=== PATIENT | female | born 1955 | race Caucasian/White ===

== ENCOUNTER 2020-02-03 11:27 | Outpatient (CLI) | payer BC, SELFPAY ==
--- NOTE | ~2020-02-03 | MMUS_ITS ---
EXAMINATION: MM screen LT diag RT w monalisa, US breast RT limited HISTORY: Right breast lump. Left breast screening. TECHNIQUE: Additional 3-D tomosynthesis images of were performed and synthetic 2-D images were genera helen. CAD analysis was submitted and interpreted. High resolution breast ultrasound was performed. COMPARISON: None BREAST PARENCHYMAL COMPOSITION: There are scattered areas of fibroglandular density. FINDINGS: MAMMOGRAPHIC FINDINGS: There is an at least 2 cm irregular hypodensity mass with associated architectural distortion and ret raction in the upper mid right breast centered medial to midline, highly suggestive of malignancy. Th ere is suggestion of right nipple retraction There is an approximately 12 mm probable oil cyst in the posterior outer right breast (craniocaudal T omosynthesis image 44/77). No other suspicious mass or architectural distortion, skin thickening or retraction or any malignant calcification of the breasts is evident. ULTRASOUND: 9:00 4 cm from nipple: 1.3 x 1.8 x 2.8 mm indeterminate hypoechoic lesion without internal vascularit y or shadowing 9:00 1 cm from nipple: 2.9 x 3.8 x 3.7 mm indeterminate hypoechoic lesion without internal vascularit y or posterior shadowing 9:00 1 cm from nipple: 3.3 x 2.2 x 3.0 mm indeterminate hypoechoic lesion without internal vascularit y or posterior shadowing 10:00 8 cm from nipple: There is a very with irregular incompletely circumscribed approximately 8.5 x 1.6 cm hypoechoic mass with some internal vascularity, suspicious for malignancy. 1:00 2 cm from nipple: There is an approximately 2.1 cm irregular mass with shaggy margins, with radi ating spicules. This mass measures up to 2.2 x 3 cm dimension, with internal vascularity, highly sugg estive of malignancy. There is linear contiguous extension of this soft tissue mass extending toward the nipple, with 8 x 10 mm irregular mass in the subareolar area.. IMPRESSION: 1. Malignant masses are suggested at 1:00 2 cm from the nipple, extending to the nipple, and at 10:00 8 cm from the nipple 2. Consider ultrasound-guided biopsy of the masses at 1:00 and 10:00 3. Breast surgeon consultation and breast MRI examination may be of benefit considering the extent of disease, for treatment planning purposes BI-RADS Category 5: Highly suggestive of malignancy. Appropriate action should be taken. Dr. Goldberg telephoned the report and biopsy recommendation to Nurse Villegas on 02/03/2020 at 1315 hours. Reviewed, dictated and finalized at location A. IMPRESSION: 1. Malignant masses are suggested at 1:00 2 cm from the nipple, extending to th e nipple, and at 10:00 8 cm from the nipple 2. Consider ultrasound-guided biopsy of the masses at 1:00 and 10:00 3. Breast surgeon consultation and breast MRI examination may be of benefit con sidering the extent of disease, for treatment planning purposes BI-RADS Category 5: Highly suggestive of malignancy. Appropriate action should be taken. Dr. Goldberg telephoned the report and biopsy recommendation to Nurse Villegas on 02/02 at 1315 hours.
== END 2020-02-03 11:28 | disposition home or self-care (01) ==
LOC: ANHIMG 11:32
PROVIDERS: PCP Family Medicine; Visit Provider Family Medicine
DX: Z12.31 Encounter for screening mammogram for malignant neoplasm of breast (principal); N63.10 Unspecified lump in the right breast, unspecified quadrant; R92.8 Other abnormal and inconclusive findings on diagnostic imaging of breast
CPT/HCPCS: 76642; 77063; 77065; 77067

== ENCOUNTER 2020-03-08 13:50 | Outpatient (CLI) | payer BC, SELFPAY ==
[2020-03-08 14:21] LABS: INR 0.9; Prothrombin Time 11.9 Seconds (11.1-14.7)
[2020-03-08 14:22] LABS: Partial Thromboplastin Time 23.9 SECONDS (22.3-36.8)
== END 2020-03-08 13:51 | disposition home or self-care (01) ==
PROVIDERS: PCP Family Medicine; Visit Provider Surgery
DX: N63.10 Unspecified lump in the right breast, unspecified quadrant (principal)
CPT/HCPCS: 36415; 85610; 85730

== ENCOUNTER 2020-03-12 00:22 | Day surgery (SDC) | payer BC, SELFPAY ==
[2020-03-07 15:34] VITALS: BMI 21.2
--- NOTE | ~2020-03-12 | XR_ITS ---
XR chest port-a-cath/central 03/12/2020 13:47 Indication: Postop insertion of portacatheter Procedure: AP portable chest Comparison: No prior studies for comparison. Findings: Portacatheter tip in the SVC. Bibasilar atelectasis. No pleural effusion, edema or pneumoth orax. No acute osseous abnormality. Heart size is normal. Impression: 1: Bibasilar atelectasis. Reviewed, dictated and finalized at location A. Impression: 1: Bibasilar atelectasis.
--- NOTE | ~2020-03-12 | XR_ITS ---
EXAMINATION: XR fl guide central line place DATE: 03/12/2020 13:17 INDICATION: Port catheter insertion TECHNIQUE: 2 fluoroscopic spot images of the upper chest were obtained during procedure performed by Dr. Robbins. Radiologist was not present for the imaging or procedure. The amount of fluoroscopy time used during this procedure was 0.7 minutes. COMPARISON: None. FINDINGS/IMPRESSION: Left internal jugular central venous port catheter with distal tip near the superior cavoatrial junct ion. See procedure note for further detail. Reviewed, dictated and finalized at location A.
[2020-03-12 11:47] VITALS: BP 158/87; PULSE 75; RESP 16; TEMP 36.7; O2SAT 99
[2020-03-12] MEDS: LACTATED RINGERS 1,000 ML 30 ML IV CONT (11:50)
--- NOTE | 2020-03-12 12:11 | P.PNAN_ITS ---
Anes - Initial Pre Proc Eval Procedure: Operation Date: 03/12/20 13:00 Proposed Procedures p Insertion Yanira Cath - Leonard Robbins DO Date/Time: 03/12/20 12:11 Surgeon: Leonard Robbins DO Pre Op Diagnosis: Right Breast Ca Patient Data Age: 64 Gender: F Height: 5 ft 4 in Weight: 56.25 kg Last Vital Signs Temp 36.7 C 03/12/20 11:47 Pulse 75 03/12/20 11:47 Resp 16 03/12/20 11:47 BP 158/87 H 03/12/20 11:47 Pulse Ox 99 03/12/20 11:47 Allergies Allergy/AdvReac Type Severity Reaction Status Date / Time No Known Allergies Allergy Verified 03/12/20 11:37 Home Medications Medication Instructions Recorded Confirmed Type multivitamin 1 tablet PO DAILY 02/20/20 03/12/20 History Laboratory Tests 03/12/20 11:53 PT Pending INR Pending APTT Pending Patient hx anesthesia problems: none Family hx anesthesia problems: none [facility] Surgical History Surgical History History of appendectomy History of dilation and curettage 11/09/01 History of tubal ligation Social History Social History Smoking status: Former smoker Alcohol intake: current Gender identity (if verbalized by the patient): Female Anes - Eval Final PreProcedure Day of Procedure 03/12/20 12:11 Patient weight: normal Heart: regular rate and rhythm Lungs: clear to auscultation Airway: Mallampati scale class II Neurological: alert and oriented Last oral intake: >/= 8 hours ASA classification: III Emergent: no Anesthesia type and monitoring: general GIVS and standard monitoring Informed Consent: The patient's anesthetic plan and its attendant risks and benefits were discussed with the patient/family/POA. Questions were solicited and answers provided to the satisfaction of the patient/family/POA.
[2020-03-12 12:17] LABS: INR 0.9; Prothrombin Time 11.5 Seconds (11.1-14.7)
[2020-03-12 12:18] LABS: Partial Thromboplastin Time 25.3 SECONDS (22.3-36.8)
--- NOTE | 2020-03-12 12:20 | PM.IMHP ---
H&P: HPI History of Present Illness Chief complaint: Right Breast Ca Narrative: Wen Jung is a 64 year old female with a recent diagnosis of right breast cancer. She has a large mass in her right breast and biopsies confirmed ductal carcinoma. Pathology showed ER/FL negative and her 2 positive. She has been referred to Oncology for preoperative evaluation, and neoadjuvant chemotherapy has been recommended. She is in need of a port placement to begin chemo. [facility] Surgical History Surgical History History of appendectomy History of dilation and curettage 11/09/01 History of tubal ligation Family History Family History Father Carcinoma of common bile duct Alcoholism Sibling Alcoholism Depressive disorder Grandparent Breast cancer Social History Social History Smoking status: Former smoker Alcohol intake: current Gender identity (if verbalized by the patient): Female Meds Home Medications and Allergies Home Medications Medication Instructions Recorded Confirmed Type multivitamin 1 tablet PO DAILY 02/20/20 03/12/20 History Allergies Allergy/AdvReac Type Severity Reaction Status Date / Time No Known Allergies Allergy Verified 03/12/20 11:37 Vital Signs Vital Signs - 24 hr 03/12/20 11:47 Temperature 36.7 C Pulse Rate 75 Respiratory Rate 16 Blood Pressure 158/87 H Pulse Oximetry 99 Exam Const: General: alert; No acute distress Orientation/consciousness: patient oriented x3 Limitations: no limitations HENMT: Head: normocephalic and atraumatic Ears: hearing grossly normal bilaterally General nose exam: Normal external nose present and Normal nares present Mouth: Yes Normal oral and palatal mucosa present and Yes moist mucous membranes Eyes: General: appearance normal, both eyes and all related structures Conjunctivae: conjunctivae normal Sclera: sclerae normal Pupils: Equal, round and reactive pupils present EOM: EOMs intact bilaterally Neck: Neck: normal visual inspection, full ROM, no lymphadenopathy, supple and no JVD Lymphatic: no lymphadenopathy noted Chest: Chest palpation & inspection: normal inspection of the chest Resp: Effort & Inspection: normal respiratory effort and able to speak in complete sentences Auscultation: clear to auscultation bilaterally Percussion: percussion normal Cardio: Jugular venous distension: no JVD Rate: regular rate Rhythm: regular rhythm Heart sounds: S1 normal heart sound present and S2 normal heart sound present Peripheral pulses: Peripheral pulses 2+ throughout GI: Inspection: normal to inspection GI Palp: No abdominal tenderness, Yes Soft to palpation, No Guarding due to palpation present (GI), No Hernia present and No Rebound tenderness present Percussion: Yes normal to percussion Auscultation: normal bowel sounds : General: Yes no CVA tenderness Back/Spine/Pelvis: Back: no CVA tenderness Skin: General skin exam: normal color and dry skin Neuro: General: patient oriented x3, gait normal, moves all extremities, no focal motor deficits and CN's II-XI intact bilaterally Cranial nerves: Yes Equal, round and reactive pupils present Speech: normal speech Extrem: General: normal to inspection and capillary refill normal Assessment and Plan Assessment and plan (1) Breast cancer, right: Qualifiers: Breast location: upper outer quadrant of breast Estrogen receptor status: negative Patient sex: female Qualified Code(s): C50.411 - Malignant neoplasm of upper-outer quadrant of right female breast; Z17.1 - Estrogen receptor negative status [ER-] Code(s): C50.911 - Malignant neoplasm of unspecified site of right female breast Status: Acute Assessment and Plan: I have recommended insertion of Port-A-Cath. I have discussed the
[2020-03-12] MEDS: ceFAZolin 2 GM/D5W 50 ML 2 GM/50 ML BAG IVPB (12:36)
[2020-03-12] MEDS: IBUPROFEN IV 800 MG/200 ML 800 MG/200 ML BAG 400 MG IVPB (12:50)
[2020-03-12] MEDS: LIDO 1%/EPINEPHRINE 1:100,000 20 ML VIAL 10 ML INFILTRATE (12:57)
[2020-03-12] MEDS: HEPARIN SODIUM, PORCINE 10,000 UNITS/10 ML VIAL 3 UNITS IV PUSH (12:58)
[2020-03-12] MEDS: HEPARIN SODIUM 5,000 UNITS/ML VIAL 5000 UNITS IRRIGATION (13:01)
--- NOTE | 2020-03-12 13:13 | SUR.OPER ---
EBL 5
--- NOTE | 2020-03-12 13:24 | PM.PROC ---
Procedure Note - Detailed Date of procedure: 03/12/20 Pre-op diagnosis: Right Breast Ca Post-op diagnosis: same Procedure performed: Left internal jugular Port-A-Cath placement using ultrasound and fluoroscopic guidance Description of procedure: Procedure as well as risks, benefits, and alternatives were discussed with patient. Written consent was obtained and placed in chart prior to procedure. Patient was brought back to surgical suite. Was placed supine on operating table. Time-out was done confirm patient procedure. IV sedation was then administered by the Anesthesia Department. The chest and neck area was prepped and draped in sterile fashion using chlorhexidine prep. Patient was placed in Trendelenburg position. SonoSite ultrasound was used to identify the left internal jugular vein. It was visualized as a compressible vessel just lateral to the carotid artery. 1% lidocaine with epinephrine was infiltrated directly over the vessel under ultrasound guidance. An 18 gauge introducer needle was then advanced under ultrasound guidance directly into the left internal jugular vein. Dark nonpulsatile blood was aspirated. A 0.035 in guidewire was then advanced through the needle under fluoroscopic guidance. The guidewire was visualized advancing all the way down into the superior vena cava. 1% lidocaine with epinephrine was then infiltrated on the left anterior chest and along the tract up to the guidewire insertion site. A 3 cm incision was made with a 15 blade scalpel, and electrocautery was then used for dissection down through the subcutaneous tissue to the pectoral fascia. A pocket was created just inferior to the incision using blunt dissection. A small brigid incision was then also made at the insertion site at the neck. The tunneler was then advanced from the chest incision up to the neck incision and the catheter tubing was brought up through this tract. The dilator and sheath were then advanced over the guidewire under fluoroscopic visualization. The dilator and guidewire were then removed leaving the sheath in place. The catheter tubing was then advanced through the sheath under fluoroscopic guidance. The sheath was unsnapped and carefully peeled away. The catheter tubing was released underneath the neck incision. Fluoroscopy was used to confirm proper placement of the catheter tubing and no kinks along its path. The catheter was then cut to proper length and secured to the port. The port was then accessed with a Tavarez needle and aspirated and flushed with heparinized saline. The port function with ease. The port was then hep-locked with Hep-Lock solution. The port was then placed within the pocket that was created, and was secured to the fascia using 3 0 Prolene simple interrupted sutures. The patient was flattened out in bed. Darren's fascia was reapproximated using 3 0 Vicryl simple interrupted sutures. The skin of the incisions was then approximated using 4-0 Monocryl subcuticular suture. Exofin glue was then applied on top. The patient was then awakened from anesthesia and transferred to recovery. Implants: 8 Fr Bard PowerPort Anesthesia: MAC and local (1% lidocaine with epinephrine) Surgeon: Leonard Robbins DO Estimated blood loss (mL): 5 Complications: No immediate complications Condition: stable Disposition: same day Findings: This is a 64-year-old woman with the recent diagnosis of right breast cancer. She was found to have a ER/AK negative, HER2 Royal positive breast cancer. She has been referred to Oncology for evaluation, and neoadjuvant chemotherapy was recommended. She is in need of port placement to initiate chemo. Ultrasound guidance was used to identify the left internal jugular vein. This was identified as a compressible vessel just lateral to the carotid artery. An 18 gauge introducer needle was advanced under ultrasound guidance directly into the lumen of the left internal jugular vein. Fluoroscopy was then us
[2020-03-12 13:28] VITALS: BP 145/85; PULSE 81; RESP 16
[2020-03-12 13:58] VITALS: BP 136/86; PULSE 78; RESP 16
[2020-03-12 14:28] VITALS: BP 135/75; PULSE 81; RESP 16
== END 2020-03-12 14:56 | disposition home or self-care (01) ==
PROVIDERS: PCP Family Medicine; Visit Provider Surgery
PROC: (CPT 36561; principal; 2020-03-12 13:00)
DX: C50.411 Malignant neoplasm of upper-outer quadrant of right female breast (principal); Z17.1 Estrogen receptor negative status [ER-]; Z87.891 Personal history of nicotine dependence
CPT/HCPCS: 36561; 36415; 77001; 85610; 85730; C1788; J0690; J1644; J1741; J2250; J2405; J2704; J3010; J7030; J7120

== ENCOUNTER 2020-03-13 09:34 | Outpatient (CLI) | payer BC, SELFPAY ==
--- NOTE | 2020-03-13 | ECHO_ITS ---
Patient Info Name: Wen Jung Age: 64 years : 1955 Gender: Female Ht: 64 in Wt: 124 lbs BSA: 1.59 m2 HR: 62 bpm BP: 160 / 83 mmHg Heart Rhythm: Sinus Rhythm Technical Quality: Fair Exam Date: 03/13/2020 11:04 AM Exam Location: [facility] Patient Status: Outpatient Admit Date: 03/13/2020 Staff Ordering Physician: SureshJanes DO Sheet Heater: Maria Luisa Virgen RDCS Attending Provider: SureshJanes DO Exam Type: CA echo doppler color flow Study Info Indications C50.911 - Malignant neoplasm of unspecified site of right female breast Complete two-dimensional, color flow and Doppler transthoracic echocardiogram is performed. Summary 1. Left ventricular systolic function is normal, estimated at 60-65%. 2. There is no increased left ventricular wall thickness. 3. The left ventricular diastolic function is grade II diastolic dysfunction. 4. There is no aortic valve stenosis. 5. There is mild mitral valve regurgitation. 6. There is trace tricuspid valve regurgitation. 7. Mild pulmonary hypertension, estimated pulmonary arterial systolic pressure is 36 mmHg. Left Ventricle Left ventricular chamber dimension is normal. Left ventricular systolic function is normal, estimated at 60-65%. There is no increased left ventricular wall thickness. The left ventricular diastolic function is grade II diastolic dysfunction. Global longitudinal strain is normal at -19 %. Right Ventricle Right ventricular chamber dimension is normal. Right ventricular systolic function is normal. Left Atria Left atrial chamber dimension is normal. Right Atria Right atrial chamber dimension is normal. Aortic Valve The aortic valve is trileaflet. There is mild aortic valve sclerosis. There is no aortic valve stenosis. There is no aortic valve regurgitation. Pulmonic Valve The pulmonic valve is not well visualized. There is trace pulmonic regurgitation. Mitral Valve The mitral valve has normal leaflets. There is mild mitral valve regurgitation. Tricuspid Valve The tricuspid valve leaflets are normal. There is trace tricuspid valve regurgitation. Mild pulmonary hypertension, estimated pulmonary arterial systolic pressure is 36 mmHg. Pericardium/Pleural The pericardium appears normal. There is no pericardial effusion. Inferior Vena Cava Normal inferior vena cava with >50% collapse upon inspiration consistent with normal right atrial pressure, 5 mmHg. Aorta The aortic root size at the sinus of Valsalva is normal. Left Ventricular Outflow Tract Name Value Normal LVOT 2D LVOT Diameter 1.9 cm LVOT Doppler LVOT Peak Gradient 3 mmHg LVOT Mean Gradient 2 mmHg LVOT VTI 19 cm LVOT VTI/AV VTI Ratio 0.9 LVOT Stroke Volume 57 ml LVOT CO 3.8 l/min LVOT CI 2.4 l/min/m2 Pulmonic Valve Name
--- NOTE | ~2020-03-13 | US_ITS ---
US axilla RT 03/13/2020 10:37 Indication: Malignant neoplasm of the right breast Procedure: High-resolution ultrasound of the axilla Comparison: No prior studies for comparison. Findings: There are multiple enlarged right axillary lymph nodes. At 10:00, 8 cm from the nipple, the re is a 1.7 cm lymph node with normal fatty hilum. At 10:00, 8 cm from the nipple, there is a 1.4 cm lymph node with effacement of the fatty hilum at 11:00, 9 cm from the nipple, there are multiple hypo echoic masses, largest measuring 1.3 cm, suspicious for pathologic lymph nodes. Impression: 1: Abnormal appearing lymph nodes at 10:00, 8 cm from the nipple and 11:00, 9 cm from the nipple, ambrocio picious for pathologic lymph nodes. Consider metastatic disease given the clinical history. BI-RADS category 6- Known biopsy proven malignancy: Appropriate action should be taken. Reviewed, dictated and finalized at location A. Impression: 1: Abnormal appearing lymph nodes at 10:00, 8 cm from the nipple and 11:00, 9 c m from the nipple, suspicious for pathologic lymph nodes. Consider metastatic d isease given the clinical history. BI-RADS category 6- Known biopsy proven malignancy: Appropriate action should b e taken.
--- NOTE | ~2020-03-13 | NM_ITS ---
EXAMINATION: NM bone scan whole body DATE: 03/13/2020 12:43 INDICATION: Right breast cancer TECHNIQUE: 25 mCi Tc-99m HDP was administered intravenously. Delayed whole-body scintigrams were obt ained. COMPARISON: Chest radiograph dated 03/12/2020 FINDINGS: Small focus of likely degenerative increased uptake at the left posterior side of the mid cervical sp ine likely related to facet osteoarthritis which is unable to be assessed in the provided chest radio graph. Region of increased activity at the right wrist at the site of radiopharmaceutical injection. No other suspicious foci of abnormal bone uptake to suggest metastatic disease. IMPRESSION: 1. No evident osseous metastatic disease. Reviewed, dictated and finalized at location A.
== END 2020-03-13 09:35 | disposition home or self-care (01) ==
PROVIDERS: PCP Family Medicine; Visit Provider Internal Medicine Medical Oncology
DX: C50.911 Malignant neoplasm of unspecified site of right female breast (principal); Z17.1 Estrogen receptor negative status [ER-]; R59.0 Localized enlarged lymph nodes; I27.20 Pulmonary hypertension, unspecified
CPT/HCPCS: 76882; 78306; 93306; A9561

== ENCOUNTER 2020-03-20 13:38 | Outpatient (CLI) | payer BC, SELFPAY ==
--- NOTE | ~2020-03-20 | PE_ITS ---
EXAMINATION: PET skull to mid thigh DATE: 03/20/2020 15:23 INDICATION: Malignant neoplasm of the right breast TECHNIQUE: Blood glucose level was 74 mg/dL. 10.356 mCi of 18-fluorodeoxyglucose (18-FDG) was adminis tered i.v. Low dose computed tomography (CT) images were acquired from the base of the brain to the p roximal thighs for attenuation correction and anatomic localization. Positron emission tomography (PE T) images were acquired in the same distribution beginning 54 minutes after injection. The dose-lengt h product (DLP) was 325.97 mGy-cm. COMPARISON: None FINDINGS: Head/neck: FDG uptake in the oral cavity without suspicious CT correlate is likely physiologic. There is mild FDG uptake in the left neck near the insertion of the internal jugular Port-A-Cath. Chest: There is an approximately 2.4 x 2.0 cm right breast mass with abnormal FDG uptake and SUV max of 2.8. Right axillary lymph nodes measure up to 1.1 cm and demonstrate mild associated FDG activity. A 7 mm nodular opacity in the right upper lobe without associated FDG uptake is likely infectious or inflammatory. There is no pleural effusion or pneumothorax. The heart size is normal. A left interna l jugular Port-A-Cath ends with its tip in the distal superior vena cava. Aorticopulmonary window lym ph nodes are subcentimeter in short axis diameter but demonstrate mild FDG uptake with an SUV max of 3.2. Abdomen/pelvis/proximal thighs: Physiologic FDG activity is present in the bowel and urinary tract. T he liver, spleen, pancreas, gallbladder, and adrenal glands are normal. No pathologically enlarged ab dominal or pelvic lymph nodes are identified. There is no free intraperitoneal gas or evidence of bow el obstruction. Musculoskeletal: No suspicious FDG uptake is identified. IMPRESSION: 1. Right breast mass consistent with known malignancy. 2. Mildly enlarged right axillary lymph nodes and normal-sized aorticopulmonary window lymph nodes wi th subtle FDG uptake could reflect metastatic disease. Reviewed, dictated and finalized at location A. IMPRESSION: 1. Right breast mass consistent with known malignancy. 2. Mildly enlarged right axillary lymph nodes and normal-sized aorticopulmonary window lymph nodes with subtle FDG uptake could reflect metastatic disease.
[2020-03-20 14:00] LABS: Glucose Point of Care 74 (65-105)
== END 2020-03-20 13:39 | disposition home or self-care (01) ==
PROVIDERS: PCP Family Medicine; Visit Provider Internal Medicine Medical Oncology
DX: C50.911 Malignant neoplasm of unspecified site of right female breast (principal); Z17.1 Estrogen receptor negative status [ER-]; R59.0 Localized enlarged lymph nodes
CPT/HCPCS: 78815; A9552

== ENCOUNTER 2020-03-28 10:20 | Outpatient (CLI) | payer BC, SELFPAY ==
--- NOTE | ~2020-03-28 | US_ITS ---
EXAMINATION: US biopsy lymph node DATE: 03/28/2020 11:03 INDICATION: Right breast cancer with enlarged FDG avid right axillary lymph nodes. TECHNIQUE: The procedure including the risks and benefits was discussed with the patient. Risks discu ssed included bleeding and infection. The patient understood the risks and agreed to proceed. The sk in overlying the right axilla was prepped and draped in usual sterile fashion. Anesthetic was admini stered with 1% lidocaine subcutaneously. An 18 gauge core biopsy needle was advanced under continuou s ultrasound observation to the lymph node of interest. 3 core biopsy specimens were obtained. The needle was removed and the entry site was cleaned and dressed. Post procedure ultrasound demonstrate d no hemorrhage. FINDINGS: Ultrasound images demonstrate a pair of hypoechoic right axillary lymph nodes near the ribs corresponding in size and location to the mildly FDG avid lymph nodes seen on prior PET/CT. The larg er and more concerning of the 2 lymph nodes measures 1.6 x 1.2 x 0.9 cm with asymmetrically thickened cortex. Subsequent images demonstrate biopsy needle advanced into this lymph node. IMPRESSION: 1. Successful Ultrasound-guided biopsy of of an enlarged FDG avid right axillary lymph node. Reviewed, dictated and finalized at location A. IMPRESSION: 1. Successful Ultrasound-guided biopsy of of an enlarged FDG avid right axillar y lymph node.
== END 2020-03-28 10:21 | disposition home or self-care (01) ==
PROVIDERS: PCP Family Medicine; Visit Provider Surgery
DX: C50.911 Malignant neoplasm of unspecified site of right female breast (principal); C77.3 Secondary and unspecified malignant neoplasm of axilla and upper limb lymph nodes
CPT/HCPCS: 38505; 76942; 88305; 88342; 88365

== ENCOUNTER 2020-06-21 14:27 | Outpatient (CLI) | payer BC, SELFPAY ==
--- NOTE | 2020-06-21 | ECHO_ITS ---
Patient Info Name: Wen Jung Age: 64 years : 1955 Gender: Female Ht: 65 in Wt: 120 lbs BSA: 1.58 m2 HR: 87 bpm BP: 138 / 90 mmHg Heart Rhythm: Sinus Rhythm Technical Quality: Good Exam Date: 06/21/2020 2:36 PM Exam Location: [facility] Pulmonary Patient Status: Outpatient Admit Date: 06/21/2020 Staff Ordering Physician: SureshJanes DO [employer] Analyst: Maria Luisa Virgen RDCS Attending Provider: SureshJanes DO Exam Type: CA echo doppler color flow Study Info Indications C50.111 - Malignant neoplasm of central portion of right female breast Complete two-dimensional, color flow and Doppler transthoracic echocardiogram is performed. Strain analysis performed. Summary 1. Left ventricular chamber dimension is normal. 2. Left ventricular systolic function is normal, estimated at 55-60%. 3. There is no increased left ventricular wall thickness. 4. The left ventricular diastolic function is grade I diastolic dysfunction. 5. Global longitudinal strain is abnormal at -15 %. 6. There is mild to moderate mitral valve regurgitation. 7. There is mild tricuspid valve regurgitation. Left Ventricle Left ventricular chamber dimension is normal. Left ventricular systolic function is normal, estimated at 55-60%. There is no increased left ventricular wall thickness. The left ventricular diastolic function is grade I diastolic dysfunction. Global longitudinal strain is abnormal at -15 %. Right Ventricle Right ventricular chamber dimension is normal. Right ventricular systolic function is normal. Left Atria Left atrial chamber dimension is normal. Right Atria Right atrial chamber dimension is normal. Atrial Septum Intact interatrial septum visualized by color flow imaging. Aortic Valve The aortic valve is trileaflet. There is mild aortic valve sclerosis. There is no aortic valve stenosis. There is trace aortic valve regurgitation. Pulmonic Valve The pulmonic valve is normal. There is no pulmonic valve stenosis. There is trace pulmonic regurgitation. Mitral Valve The mitral valve has normal leaflets. There is no mitral valve stenosis. There is mild to moderate mitral valve regurgitation. Tricuspid Valve The tricuspid valve leaflets are normal. There is no significant tricuspid valve stenosis. There is mild tricuspid valve regurgitation. No pulmonary hypertension, estimated pulmonary arterial systolic pressure is 30 mmHg. Pericardium/Pleural The pericardium appears normal. There is no pericardial effusion. Inferior Vena Cava Normal inferior vena cava with >50% collapse upon inspiration consistent with normal right atrial pressure, 10 mmHg. Aorta The aortic root size at the sinus of Valsalva is normal. The prox ascending aorta size is normal. Left Ventricular Outflow Tract Name Value Normal LVOT 2D LVOT Diameter 1.9 cm LVOT Doppler LVOT Peak Gradient 3 mmHg LVOT Mean Gradient 2 mmHg LVOT VTI 17 cm LVOT VTI/AV VTI Ratio 1.[address]
== END 2020-06-21 14:28 | disposition home or self-care (01) ==
PROVIDERS: PCP Family Medicine; Visit Provider Internal Medicine Medical Oncology
DX: C50.011 Malignant neoplasm of nipple and areola, right female breast (principal); Z17.1 Estrogen receptor negative status [ER-]
CPT/HCPCS: 93306

== ENCOUNTER 2020-08-14 13:46 | Outpatient (CLI) | payer BC, SELFPAY | END 2020-08-14 13:47 | disposition home or self-care (01) | LOC: ANHSURGERY 13:49 | PROVIDERS: PCP Family Medicine; Visit Provider Surgery | DX: N63.10 Unspecified lump in the right breast, unspecified quadrant (principal) | CPT/HCPCS: 36415; 86850; 86900; 86901 ==

== ENCOUNTER 2020-08-17 02:47 | Outpatient (CLI) | payer BC, SELFPAY ==
[2020-08-17 23:12] LABS: SARS-CoV-2 RNA PCR Negative
== END 2020-08-17 02:48 | disposition home or self-care (01) ==
LOC: ANHCOVIDDT 02:47
PROVIDERS: PCP Family Medicine; Visit Provider Surgery
DX: Z01.812 Encounter for preprocedural laboratory examination (principal); Z20.828 Contact with and (suspected) exposure to other viral communicable diseases
CPT/HCPCS: 87635; C9803; U0003

== ENCOUNTER 2020-08-20 00:11 | Day surgery (SDC) | payer BC, SELFPAY ==
[2020-08-13 10:09] VITALS: BMI 20.5
[2020-08-20] VITALS (12 sets, daily range): BP systolic 131–163; BP diastolic 73–95; PULSE 71–96; RESP 10–20; TEMP 35.9–36.9; O2SAT 94–100
[2020-08-20] MEDS: LACTATED RINGERS 1,000 ML 30 ML IV CONT ×2 (10:50→14:54)
--- NOTE | 2020-08-20 11:09 | WPDANESEPPF ---
Anes - Initial Pre Proc Eval Procedure: Operation Date: 08/20/20 12:00 Proposed Procedures p Right Modified Radical Mastectomy - Leonard Robbins DO Date/Time: 08/20/20 11:09 Surgeon: Leonard Robbins DO Pre Op Diagnosis: Right Breast Cancer Patient Data Age: 64 Gender: F Height: 5 ft 4 in Weight: 55.1 kg Last Vital Signs Temp 36.3 C L 08/20/20 10:17 Pulse 96 08/20/20 10:17 Resp 18 08/20/20 10:17 BP 152/95 H 08/20/20 10:17 Pulse Ox 100 08/20/20 10:17 Allergies Allergy/AdvReac Type Severity Reaction Status Date / Time No Known Allergies Allergy Verified 08/20/20 11:02 Home Medications Medication Instructions Recorded Confirmed Type No Home Medications 08/13/20 08/20/20 History Patient hx anesthesia problems: none Family hx anesthesia problems: none PMFSH Past Medical History Medical History Anxiety Breast cancer, right Depression Surgical History Surgical History History of appendectomy History of dilation and curettage 11/09/01 History of tubal ligation Family History Family History Father Carcinoma of common bile duct Alcoholism Sibling Alcoholism Depressive disorder Grandparent Breast cancer Social History Social History Smoking packs per day: 0.5 Smoking cigarettes per day: 10.0 Years smoked: 20 Smoking pack-years: 10.00 Smoking status: Former smoker Additional smoking assessment comments: QUIT 1997 Alcohol intake: current Drinks per week: 3 Gender identity (if verbalized by the patient): Female Spiritual care concerns: No Anes - Eval Final PreProcedure Day of Procedure 08/20/20 11:09 Patient weight: normal Heart: regular rate and rhythm Lungs: clear to auscultation Airway: Mallampati scale class II Neurological: alert and oriented Last oral intake: >/= 8 hours ASA classification: III Emergent: no Anesthetic plan: proceed Anesthesia type and monitoring: general LMA and standard monitoring Informed Consent: The patient's anesthetic plan and its attendant risks and benefits were discussed with the patient/family/POA. Questions were solicited and answers provided to the satisfaction of the patient/family/POA.
--- NOTE | 2020-08-20 11:44 | PM.IMHP ---
H&P: HPI History of Present Illness Date/Time: 08/20/20 11:44 Chief complaint: Right Breast Cancer Narrative: Wen Jung is a 64 year old female who presents for right mastectomy. She was diagnosed with multifocal right breast cancer and underwent neoadjuvant chemotherapy. She is now ready for mastectomy. Review of Systems Review of Systems: All systems reviewed & are unremarkable except as noted in HPI and below Constitutional: Constitutional: Denies chills, Denies fever(s), Denies headache(s) and Denies weight loss Eyes: Eyes: Denies change in vision ENT: Denies dizziness, Denies headache(s), Denies neck mass and Denies throat swelling Cardiovascular: Cardiovascular: Denies chest pain, Denies lightheadedness and Denies dyspnea Respiratory: Respiratory: Denies cough, Denies dyspnea and Denies wheezing Gastrointestinal: Gastrointestinal: Denies abdominal pain, Denies change in bowel habits, Denies nausea and Denies vomiting Genitourinary: Genitourinary: Denies hematuria and Denies dysuria Musculoskeletal: Musculoskeletal: Reports as per HPI Integumentary/Breasts: Skin/Breast: Reports as per HPI Neurologic: Denies dizziness and Denies headache(s) Allergic/Immunologic: Allergic/Immunologic: Denies throat swelling and Denies wheezing PMFSH Past Medical History Medical History Anxiety Breast cancer, right Depression Surgical History Surgical History History of appendectomy History of dilation and curettage 11/09/01 History of tubal ligation Family History Family History Father Carcinoma of common bile duct Alcoholism Sibling Alcoholism Depressive disorder Grandparent Breast cancer Social History Social History Smoking packs per day: 0.5 Smoking cigarettes per day: 10.0 Years smoked: 20 Smoking pack-years: 10.00 Smoking status: Former smoker Additional smoking assessment comments: QUIT 1997 Alcohol intake: current Drinks per week: 3 Gender identity (if verbalized by the patient): Female Spiritual care concerns: No Meds Home Medications and Allergies Home Medications Medication Instructions Recorded Confirmed Type No Home Medications 08/13/20 08/20/20 History Allergies Allergy/AdvReac Type Severity Reaction Status Date / Time No Known Allergies Allergy Verified 08/20/20 11:02 Vital Signs Vital Signs - 24 hr 08/20/20 10:17 Temperature 36.3 C L Pulse Rate 96 Respiratory Rate 18 Blood Pressure 152/95 H Pulse Oximetry 100 Exam Const: General: no acute distress and alert Orientation/consciousness: patient oriented x3 HENMT: Head: normocephalic and atraumatic Ears: hearing grossly normal bilaterally General nose exam: Normal nares present Mouth: Yes Normal oral and palatal mucosa present Eyes: Periorbital: periorbital findings normal Sclera: sclerae normal EOM: EOMs intact bilaterally Neck: Neck: normal visual inspection, no lymphadenopathy and trachea midline Chest: Chest palpation & inspection: normal inspection of the chest Resp: Effort & Inspection: normal respiratory effort Auscultation: clear to auscultation bilaterally Cardio: Jugular venous distension: no JVD Rate: regular rate Rhythm: regular rhythm Heart sounds: S1 normal heart sound present and S2 normal heart sound present Peripheral pulses: Peripheral pulses 2+ throughout GI: Inspection: normal to inspection GI Palp: Yes Soft to palpation, No Tenderness to palpation present (GI), No Guarding due to palpation present (GI) and No Rebound tenderness present Percussion: Yes normal to percussion Auscultation: normal bowel sounds : General: Yes no CVA tenderness Back/Spine/Pelvis: Back: no CVA tenderness Neuro: General: patient oriented
--- NOTE | 2020-08-20 11:48 | WPDHPUPDATE1 ---
History and Physical Update Update Date/Time: 08/20/20 11:48 History and Physical has been reviewed, including an updated exam of the patient. There are NO changes in the patient's condition. Risks, benefits, and alternatives have been discussed and questions answered. Patient agrees to proceed with procedure.
[2020-08-20] MEDS: ceFAZolin 2 GM/D5W 50 ML 2 GM/50 ML BAG IVPB (12:06)
[2020-08-20] MEDS: BUPIVACAINE/EPINEPHRINE 0.5% 10 ML VIAL INFILTRATE (12:42)
[2020-08-20] MEDS: BACITRACIN OINTMENT 15 GM TUBE 1 APPLIC TOPICAL (14:35)
--- NOTE | 2020-08-20 14:35 | SUR.OPER ---
Ebl=20ml
--- NOTE | 2020-08-20 14:42 | PM.PROC ---
Procedure Note - Detailed Date of procedure: 08/20/20 Pre-op diagnosis: Right Breast Cancer Post-op diagnosis: same Procedure performed: Right modified radical mastectomy Description of procedure: Procedure as well as risks, benefits, and alternatives were discussed with the patient. Written consent was obtained and placed in chart prior to procedure. Patient was brought back to surgical suite. She was placed supine on operating table. Time-out was done to confirm patient and procedure. General anesthesia was then administered by the Anesthesia Department. Her right chest and arm area was prepped and draped in sterile fashion using chlorhexidine prep. The skin incision was carefully marked out with a skin marker prior to incision. 0.5% bupivacaine with epinephrine was infiltrated locally around the area. An elliptical incision was then made using a 10 blade scalpel. Electrocautery was used for hemostasis. The superior skin flap was then initially created using electrocautery. This was extended cephalad all the way up near the clavicle. Care was taken to preserve the skin perforators along the dissection. I then also dissected medially to the sternal border. The inferior skin flap was then created in a similar fashion using electrocautery. This was extended all the way beyond the inframammary fold. The medial perforating vessels were then ligated using electrocautery as I carefully dissected the breast tissue off of the pectoralis major muscle. The pectoral fascia was dissected off the muscle with the breast. This was extended from medial to lateral all the way out to the lateral pectoral border. Once the breast was most of the way dissected free all the way up to the tail near the axilla, I then began dissecting through the clavipectoral fascia and into the axillary contents. I then carefully dissected the axillary contents off of the lateral chest wall and the lateral border of the pectoralis major and minor. I then dissected cephalad far enough to identify the axillary vein. I identified the thoracodorsal bundle running posterior to the axillary vein. I identified and preserved this throughout its path. I then also identified the long thoracic nerve near the serratus anterior muscle. This was also identified and preserved throughout its path. The level 1 and level 2 axillary tissue was carefully dissected free. Several of the lymphatic vessels and channels were identified and ligated with a hemoclip disintegrator. All of the axillary contents were freed up and removed along with the breast tissue and the specimen was completely removed. The specimen was then labeled with a short suture superior and long suture lateral. It was then sent to the lab for pathology. I then inspected the axillary bed and chest wall. The area was irrigated with sterile saline. No further bleeding was identified. I chose to place 2 drains. A 15 round Gaetano drain was placed through a lateral counter incision and was angled up into the axilla. Another 15 round Gaetano drain was placed through a counter incision inferior to the skin flap and was placed along the pectoralis muscle. Both drains were secured in place using a 3 0 nylon drain stitch. The skin edges were inspected and appeared to come together without any tension. There was 1 small mole on the skin just superior to the skin incision. This was excised using curved Wild scissors and discarded. The deep dermis was then reapproximated using 3 0 Vicryl simple interrupted sutures. The skin was then approximated using 4 O Monocryl running subcuticular suture. Exofin glue was then applied on top. Bacitracin ointment was applied over the mole excision. Fluff gauze drain sponges and a surgical bra were then applied. The patient was then awakened from anesthesia, extubated, and transferred to recovery. Anesthesia: GLMA and local (0.5% bupivicaine with epi) Surgeon: Leonard Robbins DO Estimated blood loss (mL): 20
[2020-08-20] MEDS: fentaNYL CITRATE INJ (*CRX) 100 MCG/2 ML VIAL 25 MCG IV PUSH ×4 (15:41→16:04)
[2020-08-20] MEDS: LACTATED RINGERS 1,000 ML 100 ML IV CONT (17:49)
[2020-08-20] MEDS: HYDROcodone/acetaminophen (*CRX) 5-325 MG TABLET 1 TAB PO ×2 (17:58→22:45)
[2020-08-21 02:00] VITALS: BP 123/62; PULSE 76; RESP 20; TEMP 36.5; O2SAT 98
[2020-08-21] MEDS: ACETAMINOPHEN 325 MG TABLET 650 MG PO (03:59)
[2020-08-21 06:00] VITALS: BP 129/60; PULSE 74; RESP 18; TEMP 36.8; O2SAT 97
--- NOTE | 2020-08-21 08:01 | WPDANESPN ---
Anes - Prog Note Post-Op Date/Time: 08/21/20 08:01 Cardiovascular status: normal Respiratory status: normal Airway patency: baseline Mental status: baseline Post-Op hydration status: normal Vital Signs: Last Vital Signs Temp 36.8 C 08/21/20 06:00 Pulse 74 08/21/20 06:00 Resp 18 08/21/20 06:00 BP 129/60 08/21/20 06:00 Pulse Ox 97 08/21/20 06:00 Pain Score (VAS): 0 I/O: Intake & Output 08/20/20 08/21/20 08/21/20 23:59 07:59 15:59 Intake Total 390 2190 Output Total 645 1725 Balance -255 465 Post-procedural complaints: none Patient Feedback: Patient satisfied with anesthetic care.
--- NOTE | 2020-08-21 09:13 | PM.DS ---
DS: Admitting Diagnosis Admitting Diagnosis Admitting Diagnosis: Right Breast Cancer DS: Discharge Diagnosis Discharge Diagnosis (1) Breast cancer, right: Qualifiers: Breast location: upper outer quadrant of breast Estrogen receptor status: negative Patient sex: female Qualified Code(s): C50.411 - Malignant neoplasm of upper-outer quadrant of right female breast; Z17.1 - Estrogen receptor negative status [ER-] Code(s): C50.911 - Malignant neoplasm of unspecified site of right female breast Status: Acute DS: Summary Hospital Course Reason for hospitalization: Right breast cancer. Hospital Course: This is a 64-year-old woman who presented for right modified radical mastectomy. She was diagnosed with right breast cancer in February 2020. She has completed preoperative chemotherapy and now presents for mastectomy. Surgery was uncomplicated and she was admitted to the hospital postoperatively. Pain was controlled with oral and IV pain medications. Her activity was gradually advanced as tolerated. On postop day 1 she was remaining hemodynamically stable and there was minimal drain output. She was tolerating light activity. She was given instruction on proper drain care and was discharged on postop day 1. Status at Discharge Functional status at discharge: independent ambulation Overall status at discharge: patient is progressing back to baseline Time Spent with Patient Time attestation: Total time spent providing and/or coordinating discharge services: Time spent: Less than 30 minutes Exam Const: General: cooperative Neck: Neck: normal visual inspection and no JVD Resp: Effort & Inspection: normal respiratory effort Auscultation: clear to auscultation bilaterally Cardio: Rate: regular rate Rhythm: regular rhythm Heart sounds: S1 normal heart sound present and S2 normal heart sound present GI: GI Palp: Yes Soft to palpation and No Tenderness to palpation present (GI) DS: Data Data Completed and Pending Pending studies at discharge: Pending at discharge 08/20/20 14:04 Surgical [PTH] Routine Discharge Plan Discharge Patient Disposition: Home, Self-Care Discharge Instructions: Discharge Instruction Sheet for [facility] Node Biopsy (Possible Axillary Node Dissection) Patients Dr. Strong, Dr[facility] [address] [facility] [address] [place] [address] 1.) Keep wound clean and dry. If drains are present, will need to sponge bathe or shower facing away from shower head until drain(s) are removed. This drain will be removed during your follow up visit. 2.) No vigorous activity or carrying with affected arm. May use arm to comb hair, eat, write, etc. 3.) Do not apply creams or ointments unless directed to do so by your surgeon. 4.) Ambulate (walk) for exercise at least 3 times per day. 5.) Contact your surgeon?s office if you have excessive and persistent pain, swelling, bleeding, or drainage through the dressing, redness or red streaks around the wound, heat or warmth at the site of the incision, or fever of more then 101 degrees. 6.) Resume all home medications. Patient to be given pain medication prescription prior to discharge if needed. 7.) Nutrition: Start out by drinking fluids and increase your diet as tolerated. If you experience nausea, try dry toast and crackers and 7-UP. If nausea or vomiting persists, contact your surgeon?s office. 8.) No alcohol while taking your narcotic pain medication. No driving for 24 hours or if you are taking your narcotic pain medication. Rev. 06/22 Patient Instructions: Mastectomy (DC), Mole or Nevus Excision (DC) Follow-up/Referrals: Leonard Robbins, [Physician] - Keep Reg. Scheduled Appt. (May call office sooner if drain output is less than 20 mL/day in each drain) Discharge Medications: New hydrocodone-acetaminophen [[place]]
[2020-08-21 10:00] VITALS: BP 123/59; PULSE 80; RESP 14; TEMP 36.3; O2SAT 99
== END 2020-08-21 11:15 | disposition home or self-care (01) ==
LOC: ANHSURGERY 10:06 → ANH2MED 16:55
PROVIDERS: PCP Family Medicine; Visit Provider Surgery
PROC: (CPT 19307; principal; 2020-08-20 12:00)
DX: C50.411 Malignant neoplasm of upper-outer quadrant of right female breast (principal); C77.3 Secondary and unspecified malignant neoplasm of axilla and upper limb lymph nodes; Z17.1 Estrogen receptor negative status [ER-]; Z87.891 Personal history of nicotine dependence
CPT/HCPCS: 19307; 88307; 88342; A9270; C1713; J0690; J1100; J2250; J2405; J2704; J3010; J7120

== ENCOUNTER 2020-09-14 08:30 | Outpatient (CLI) | payer BC, SELFPAY ==
--- NOTE | 2020-09-14 | ECHO_ITS ---
Patient Info Name: Wen Jung Age: 64 years : 1955 Gender: Female Ht: 64 in Wt: 123 lbs BSA: 1.59 m2 HR: 86 bpm BP: 151 / 80 mmHg Technical Quality: Good Exam Date: 09/14/2020 9:11 AM Exam Location: [facility] Patient Status: Outpatient Admit Date: 09/14/2020 Staff Ordering Physician: SureshJanes DO Slater Apprentice: Vilma Luong RDCS Attending Provider: TabithaJanes DO Exam Type: CA echo doppler color flow Study Info Indications - neoplasm right breast ca chemo radiation Complete two-dimensional, color flow and Doppler transthoracic echocardiogram is performed. Summary 1. Complete two-dimensional, color flow and Doppler transthoracic echocardiogram is performed. 2. Left ventricular chamber dimension is normal. 3. Left ventricular systolic function is normal, estimated at 60-65%. 4. The left ventricular diastolic function is grade I diastolic dysfunction. 5. E/e' 10 is mildly elevated. 6. There is mild mitral valve regurgitation. 7. There is trace tricuspid valve regurgitation. 8. No pulmonary hypertension, estimated pulmonary arterial systolic pressure is 28 mmHg. Left Ventricle E/e' 10 is mildly elevated. Global longitudinal strain is not performed. Left ventricular chamber dimension is normal. Left ventricular systolic function is normal, estimated at 60-65%. The left ventricular diastolic function is grade I diastolic dysfunction. Right Ventricle Right ventricular chamber dimension is normal. Right ventricular systolic function is normal. Left Atria Left atrial chamber dimension is normal. Right Atria Right atrial chamber dimension is normal. Aortic Valve The aortic valve is trileaflet. There is no aortic valve stenosis. There is no aortic valve regurgitation. Pulmonic Valve There is no pulmonic regurgitation. Mitral Valve There is no mitral valve stenosis. There is mild mitral valve regurgitation. Tricuspid Valve There is trace tricuspid valve regurgitation. No pulmonary hypertension, estimated pulmonary arterial systolic pressure is 28 mmHg. Pericardium/Pleural There is no pericardial effusion. Inferior Vena Cava Normal inferior vena cava with >50% collapse upon inspiration consistent with normal right atrial pressure, 5 mmHg. Aorta The aortic root size at the sinus of Valsalva is normal. Left Ventricular Outflow Tract Name Value Normal LVOT 2D LVOT Diameter 2.0 cm LVOT Doppler LVOT Peak Gradient 4 mmHg LVOT Mean Gradient 2 mmHg LVOT VTI 21 cm LVOT VTI/AV VTI Ratio 0.9 LVOT Stroke Volume 65 ml LVOT CO 12.6 l/min LVOT CI 8.0 l/min/m2 Pulmonic Valve Name Value Normal PV Doppler
== END 2020-09-14 08:31 | disposition home or self-care (01) ==
PROVIDERS: PCP Family Medicine; Visit Provider Internal Medicine Medical Oncology
DX: C50.011 Malignant neoplasm of nipple and areola, right female breast (principal); Z17.1 Estrogen receptor negative status [ER-]
CPT/HCPCS: 93306

== ENCOUNTER 2020-10-26 14:30 | Outpatient (CLI) | payer BC, SELFPAY ==
--- NOTE | 2020-10-26 | ECHO_ITS ---
Patient Info Name: Wen Jung Age: 64 years : 1955 Gender: Female Ht: 64 in Wt: 120 lbs BSA: 1.57 m2 HR: 82 bpm BP: 130 / 72 mmHg Technical Quality: Good Exam Date: 10/26/2020 3:16 PM Exam Location: [facility] Patient Status: Outpatient Admit Date: 10/26/2020 Staff Ordering Physician: SureshJanes DO Chief Compliance Officer: Vilma Luong RDCS Attending Provider: TabithaJanes DO Exam Type: CA echo doppler color flow Study Info Indications - CHEMO Complete two-dimensional, color flow and Doppler transthoracic echocardiogram is performed. Summary 1. Complete two-dimensional, color flow and Doppler transthoracic echocardiogram is performed. 2. Left ventricular chamber dimension is normal. 3. Left ventricular systolic function is normal, estimated at 60-65%. 4. The left ventricular diastolic function is grade I diastolic dysfunction. 5. E/e' 11 is mildly elevated. 6. Global longitudinal strain is normal at -18.3%. 7. There is mild mitral valve regurgitation. 8. There is mild tricuspid valve regurgitation. 9. No pulmonary hypertension, estimated pulmonary arterial systolic pressure is 30 mmHg. Left Ventricle E/e' 11 is mildly elevated. Global longitudinal strain is normal at -18.3%. Left ventricular chamber dimension is normal. Left ventricular systolic function is normal, estimated at 60-65%. The left ventricular diastolic function is grade I diastolic dysfunction. Right Ventricle Right ventricular chamber dimension is normal. Right ventricular systolic function is normal. Left Atria Left atrial chamber dimension is normal. Right Atria Right atrial chamber dimension is normal. Aortic Valve The aortic valve is trileaflet. There is no aortic valve stenosis. There is no aortic valve regurgitation. Pulmonic Valve There is no pulmonic regurgitation. Mitral Valve There is no mitral valve stenosis. There is mild mitral valve regurgitation. Tricuspid Valve There is mild tricuspid valve regurgitation. No pulmonary hypertension, estimated pulmonary arterial systolic pressure is 30 mmHg. Pericardium/Pleural There is no pericardial effusion. Inferior Vena Cava Normal inferior vena cava with >50% collapse upon inspiration consistent with normal right atrial pressure, 5 mmHg. Aorta The aortic root size at the sinus of Valsalva is normal. Left Ventricular Outflow Tract Name Value Normal LVOT 2D LVOT Diameter 2.0 cm LVOT Doppler LVOT Peak Gradient 4 mmHg LVOT Mean Gradient 2 mmHg LVOT VTI 20 cm LVOT VTI/AV VTI Ratio 0.7 LVOT Stroke Volume 61 ml LVOT CO 13.1 l/min LVOT CI 8.4 l/min/m2 Pulmonic Valve Name Value Normal PV Doppler
== END 2020-10-26 14:31 | disposition home or self-care (01) ==
PROVIDERS: PCP Family Medicine; Visit Provider Internal Medicine Medical Oncology
DX: C50.911 Malignant neoplasm of unspecified site of right female breast (principal); Z17.1 Estrogen receptor negative status [ER-]; I36.1 Nonrheumatic tricuspid (valve) insufficiency; I34.0 Nonrheumatic mitral (valve) insufficiency
CPT/HCPCS: 93306

== ENCOUNTER 2020-12-13 11:00 | Outpatient (RCR) | payer BC, MEDICARE, MEDICAID, SELFPAY ==
--- NOTE | 2020-09-19 11:44 | PTOPEVAL ---
Addendum entered by Tiana Peterson, PT 09/19/20 13:33: PLAN OF TREATMENT is scheduled for 1-2x/wk for 6 weeks, to begin at 1x/wk and assess how she does with additional chemotherapy and radiation treatments, if need to increase to 2x/wk. Original Note: PHYSICAL THERAPY EVALUATION AND PLAN OF CARE 09-19-2020 Thank you for referring Wen Jung to [facility].? sHE is scheduled to be seen for therapy? 2 x/week for 6 weeks. Please review, sign, date and return this plan of care BONY. I agree with and certify that the following plan of care is medically necessary. Referring Physician Date Attending Provider: DO Radha PopePT Outpatient Evaluation Start: 09/19/20 10:42 Document 09/19/20 10:42 KIERA (Rec: 09/19/20 11:44 KIERA [id number]) Outpatient Past Medical History Past Medical History Source of Past Medical History Patient Neurological History Hx Neurological Disorders No Significant History Cardiovascular History Hx Cardiac Disorders No Significant History Respiratory History Hx Respiratory Disorders No Significant History Gastrointestinal History Hx Appendectomy Yes: 2009 Genitourinary History Hx Genitourinary Disorders No Significant History Musculoskeletal History Hx Other Musculoskeletal Disorders Yes: RT SHOULDER TENDONITIS Hematological History Hx Hematological Disorders No Significant History Endocrine History Hx Endocrine Disorders No Significant History HEENT History Hx Dental Problems Yes: FULL UPPER & LOWER DENTURES Integumentary History Hx Skin Disorders No Significant History Reproductive History Hx Mastectomy Yes: R Mastectomy with lymph node removal 08-20-20 Hx Post Menopausal Yes Hx Tubal Ligation Yes: 1970'S Hx Other Reproductive Disorders Yes: CYSTS DRAINED FROM RT BREAST EARLY 1999'S, D&C,2009 RT OVARY & TUBE REMOVED Psychosocial History Hx Anxiety Yes Hx Depression Yes Pain History History of Any Previous or Ongoing No Significant History Instance of Pain Anesthesia History Hx Anesthesia Reactions No Significant History Other History Hx Cancer Yes: RT BREAST Hx Chemotherapy Yes: pre surg x 6; start more chemo ? start date Hx Implanted Device Yes: PORT A CATH L CHEST Hx Radiation Therapy Yes: to start- ? date start, to dr 09-27-20 Evaluation Information Problem Diagnosis s/p R mastectomy Onset 08-20-2020 Prior Level of Function Activity Level (Last 3 Months) Occupation not working outside of home Hand Dominance Right Activity of Daily Livin
--- NOTE | 2020-10-30 11:57 | PTOPEVAL ---
PHYSICAL THERAPY RE-EVALUATION AND UPDATED PLAN OF CARE 10-30-2020 Refer to clinical summary below, for a comparison of the initial evaluation to today's reassessment. Thank you for referring Wen Jung to [facility].? She is scheduled to continue therapy? 1-2 x/week for 6 weeks. Please review, sign, date and return this plan of care BONY. I agree with and certify that the following plan of care is medically necessary. Referring Physician Date Attending Provider: Leonard Robbins, PT Outpatient Re-Evaluation Document 10/30/20 11:05 KIERA (Rec: 10/30/20 11:57 KIERA [id number]) Subjective Information Wen reports: therapy has Query Text:As Reported By Patient/ helped her arm, doing home Family exercises for arm; had chemo yesterday; want to continue therapy, feels like therapy is helping; is scheduled for one last chemo treatment on Nov 12 , then to have 30 radiation treatments- not yet scheduled. Pain Assessment Timing of Pain Assessment Timing of Pain Assessment Assessment Pain Scale Pain Scale Used Numeric (1 - 10) Self Report Pain Assessment Right Shoulder(s) Reported Pain Level 2 Pain Description Soreness Radicular Pain Location tight across entire joint- not one spot sore/tight Pain Frequency Acute Other Pain Description R shoulder sore from chemo yesterday; better today Lowest Pain Intensity 0 Greatest Pain Intensity 2 Pain Score Pain Score 2: Self Report Interventions Used Interventions Used By Clinicians Exercise Upper Extremity Range of Motion General Upper Extremity Range of Motion Gross Upper Extremity Range of Motion standing R shoulder AROM: Comments flexion 130' , abduction 130' x 10 reps each; ER- reach to back of head- palm to back of head; no reports of pain with motions; Upper Extremity Muscle Strength Testing General Upper Extremity Strength Gross Upper Extremity Strength Comments in standing: R shoulder flexion, abduction and ER- is able to perform active 10 reps through her available ROM. active scapular adduction and posterior shoulder circles x 10 reps; independent with HEP; reports doing all of her home tasks and self care activities
--- NOTE | 2020-12-13 11:23 | PTOPEVAL ---
PHYSICAL THERAPY RE-EVALUATION AND UPDATED PLAN OF CARE 12-13-2020 Refer to the clinical summary below for her status, compared to the last reevaluation. Wen has improved and doing well, but has completed 11 out of the 33 scheduled radiation treatments. PT plan is for her to call if additional treatment is needed in the next 4 weeks. The plan of care is set for 0-2x/week for 4 weeks. Thank you for referring Wen Jung to [facility] [place][Note 2].? Please review, sign, date and return this updated plan of care [facility]. I agree with and certify that the following plan of care is medically necessary. Referring Physician Date Attending Provider: Leonard Robbins, document 12/13/20 10:45 KIERA (Rec: 12/13/20 11:23 KIERA [id number]) Assessment Status Re-evaluation Subjective Information Wen reports: doing pretty Query Text:As Reported By Patient/ good; have completed chemo; Family have completed 11 out of 30 radiation; at home, am able to do everything need to do and did before; have some fatigue, take a 30 min nap during day and do OK with it; tightness from radiation over trunk; doing exercises for shoulder and self massage at home; Today, she did not wear her compression bra or swell pad, due to just coming from radiation therapy, but has been using at home. Issued list of supplier names to her and info for a swell pad. The swell pad she has is one we made and not durable or washable. She states she feels like she wants to finish with therapy now. Discussed with her that she is about half way through radiation, and may still have some additional changes with her skin. Plan to have establish plan of care for 0- 2x/week for 4 weeks, for her to call if need additional therapy. She agreed to this plan. Pain Assessment Timing of Pain Assessment Timing of Pain Assessment Assessment Pain Scale Pain Scale Used Numeric (1 - 10) Self Report Pain Assessment Right Shoulder(s) Reported Pain Level 0 Pain Description Tightness Radicular Pain
--- NOTE | 2021-01-10 09:35 | PCPTNOTE ---
PHYSICAL THERAPY DISCHARGE 01-10-21 Attending Provider: Leonard Robbins DO Patient:Wen Jung Date of :1955 Ms. Jung has not returned for any further treatments since the reevaluation on 12/13/2020, therefore she will be discharged at this time. After the reevaluation, she was to call for additional appointments if further treatment was needed; she did not contact us. Thank you for referring this patient to [facility]. Please review, sign, date and return this discharge summary BONY. I have been updated about the patient's current status and I agree with discharge from the above service at this time. Referring Physician Date
== END 2020-12-18 23:59 | disposition home or self-care (01) ==
LOC: ANHPT 11:00
PROVIDERS: PCP Family Medicine; Visit Provider Surgery
DX: C50.411 Malignant neoplasm of upper-outer quadrant of right female breast (principal); Z17.1 Estrogen receptor negative status [ER-]
CPT/HCPCS: 97110; 97140; 97161

== ENCOUNTER 2021-03-14 15:17 | Outpatient (CLI) | payer MEDICARE, MEDICAID, SELFPAY ==
--- NOTE | ~2021-03-14 | MM_ITS ---
EXAMINATION: MM screening cordell LT w monalisa HISTORY: Screening TECHNIQUE: Craniocaudal and mediolateral oblique 3-D tomosynthesis images were obtained and synthetic 2-D images were generated. CAD analysis was submitted and interpreted. COMPARISON: 02/03/2020 BREAST PARENCHYMAL COMPOSITION: The breasts are heterogenously dense, which may obscure small masses FINDINGS: There is no evidence of suspicious mass, calcification, or architectural distortion to sugg est malignancy in the left breast. There has been no suspicious interval change. IMPRESSION: 1. No mammographic evidence of malignancy. 2. Recommend routine screening mammography in one year. BI-RADS Category 1: Negative Reviewed, dictated and finalized at location A.
== END 2021-03-14 15:18 | disposition home or self-care (01) ==
PROVIDERS: PCP Family Medicine; Visit Provider Internal Medicine Medical Oncology
DX: Z12.31 Encounter for screening mammogram for malignant neoplasm of breast (principal)
CPT/HCPCS: 77063; 77067

== ENCOUNTER → 2021-08-26 00:12 | Outpatient (CLI) | payer MEDICARE, MEDICAID, SELFPAY ==
[2021-08-26 18:52] LABS: SARS-CoV-2 RNA PCR Negative
== END ==
PROVIDERS: PCP Family Medicine; Visit Provider Surgery
DX: Z01.812 Encounter for preprocedural laboratory examination (principal); Z20.822 Contact with and (suspected) exposure to COVID-19
CPT/HCPCS: C9803; U0003; U0005

== ENCOUNTER 2021-08-29 08:00 | Day surgery (SDC) | payer MEDICARE, MEDICAID, SELFPAY ==
[2021-08-23 11:11] VITALS: BMI 22.6
[2021-08-29 11:00] VITALS: BP 145/76; PULSE 86; RESP 16; TEMP 37.1; O2SAT 100
--- NOTE | 2021-08-29 11:57 | PM.IMHP ---
H&P: HPI History of Present Illness Date/Time: 08/29/21 11:57 Pt here for VAD removal s/p treatment for R breast cancer. Pt reports VAD has been working well and never had any issues. Chief Complaint: R breast cancer Review of Systems Review of Systems: All systems reviewed & are unremarkable except as noted in HPI and below PMFSH Past Medical History Medical History Anxiety Breast cancer, right Depression Surgical History Surgical History History of appendectomy History of dilation and curettage 11/09/01 History of modified radical mastectomy of right breast 08/20/2020 History of tubal ligation Family History Family History Father Carcinoma of common bile duct Alcoholism Sibling Alcoholism Depressive disorder Grandparent Breast cancer Social History Social History Smoking packs per day: 0.5 Smoking cigarettes per day: 10.0 Years smoked: 15 Smoking pack-years: 7.50 Smoking status: Former smoker Tobacco type: cigarettes Smoking end date: 11/09/97 Additional smoking assessment comments: QUIT 1997 Alcohol intake: current Drinks per week: 6 Substance use: never Substance use type: does not use Living arrangements: with family Gender identity (if verbalized by the patient): Female Sexual Orientation (if Verbalized by the Patient): Straight or Heterosexual Spiritual care concerns: No Meds Home Medications and Allergies Home Medications Medication Instructions Recorded Confirmed Type magnesium 400 mg PO DAILY 08/23/21 08/29/21 History Allergies Allergy/AdvReac Type Severity Reaction Status Date / Time No Known Allergies Allergy Verified 08/29/21 11:48 Vital Signs Vital Signs - 24 hr 08/29/21 11:00 Temperature 37.1 C Pulse Rate 86 Respiratory Rate 16 Blood Pressure 145/76 H Pulse Oximetry 100 Exam Const: General: cooperative, comfortable and no acute distress Chest: Chest palpation & inspection: normal inspection of the chest Other: L chest VAD - C/D/I Resp: Effort & Inspection: normal respiratory effort Auscultation: clear to auscultation bilaterally Cardio: Rate: regular rate Rhythm: regular rhythm Assessment and Plan Assessment and plan (1) Invasive ductal carcinoma of right breast: Code(s): C50.911 - Malignant neoplasm of unspecified site of right female breast Status: Acute Assessment and Plan: s/p treatment, will remove L chest VAD
--- NOTE | 2021-08-29 11:59 | WPDHPUPDATE1 ---
History and Physical Update Update Date/Time: 08/29/21 11:59 History and Physical has been reviewed, including an updated exam of the patient. There are NO changes in the patient's condition. Risks, benefits, and alternatives have been discussed and questions answered. Patient agrees to proceed with procedure.
[2021-08-29 12:05] VITALS: BP 142/73; PULSE 80; RESP 14; O2SAT 98
[2021-08-29 12:15] VITALS: BP 131/62; PULSE 76; RESP 16; O2SAT 97
[2021-08-29] MEDS: BUPIVACAINE HCL 0.5% PF 30 ML VIAL INFILTRATE (12:20)
[2021-08-29 12:25] VITALS: BP 118/69; PULSE 79; RESP 16; O2SAT 97
[2021-08-29 12:30] VITALS: BP 137/71; PULSE 80; RESP 16; O2SAT 98
[2021-08-29 13:00] VITALS: BP 138/70; PULSE 78; RESP 16
--- NOTE | 2021-08-29 13:15 | P.OP_ITS ---
Procedure Note - Detailed Date of Procedure 08/29/21 Pre-op Diagnosis Right Breast CA Post-op Diagnosis same Procedure Performed removal L chest VAD Surgeon Francine Myers MD Anesthesia local Indications 65 y/o F s/p treatment for R breast cancer. Pt had L sided VAD placed about a year ago. Findings [facility] VAD Description of Procedure The patient was taken to the operating room and placed in the supine position. The patient was then prepped and draped in the normal sterile fashion. A time- out was then done to verify the patient's identity, as well as the procedure being performed. I began by localizing the area of the previously placed port in the left chest. After the area was adequately anesthetized, I made an incision through the previous incision to gain access to the port in the subcutaneous tissue. I was then able to identify the port and using dissection with the Bovie cautery, I was able to free the reservoir from the subcutaneous pocket. The reservoir was being held in by 2 sutures and these were subsequently cut. I was then able to remove the reservoir from the pocket. I then removed the catheter from the left internal jugular vein in full. I then held pressure at the level the left internal jugular vein for approximately 5 minutes. Hemostasis was noted and I irrigated the pocket. I then closed the subcutaneous tissue with 3-0 Vicryl suture. The skin was closed with 4-0 M onocryl subcuticular suture. Dermabond was placed on the wound. The patient tolerated the procedure well and was alert and awake in the operating room postoperative. The patient will be sent to the recovery room in stable condition. Estimated Blood Loss 5 Drains No Packing No Pathology none sent Complications No immediate complications Condition stable Disposition PACU
== END 2021-08-29 13:23 | disposition home or self-care (01) ==
PROVIDERS: PCP Family Medicine; Visit Provider Surgery
PROC: (CPT 36589; principal; 2021-08-29 12:00)
DX: Z45.2 Encounter for adjustment and management of vascular access device (principal); Z85.3 Personal history of malignant neoplasm of breast; F41.8 Other specified anxiety disorders; Z90.11 Acquired absence of right breast and nipple; Z87.891 Personal history of nicotine dependence
CPT/HCPCS: 36590